=== PATIENT | male | born 1965 | race Caucasian/White ===

== ENCOUNTER 2017-03-27 15:03 | Inpatient (IN) | payer OTHER ==
[~2017-03-27] VITALS: Ht 182.9 cm; Wt 125.9 kg
[~2017-03-27 15:03] MED LIST: ANTIVERT25 MG PO; ASPIRIN325 MG PO; ATARAX,VISTARIL25 MG PO; ATIVAN0.5 MG PO; BACTRIM,SEPT1 TABLET PO; BUSPAR10 MG PO; CELEXA20 MG PO; CITALOPRAM HBR20 MG PO; COLACE100 MG PO; Chronulac,Cephulac,Enulose 20 gm/30 ml PO; DEPAKOTE ER500 MG PO; DEPAKOTE250 MG PO; DICYCLOMINE HCL10 MG PO; DILANTIN100 MG PO; DIVALPROEX SOD250 MG PO; DIVALPROEX SOD500 M1 PO; EFFEXOR XR150 MG PO; EFFEXOR XR37.5 MG PO; EFFEXOR XR75 MG PO; ENDOCET 5-3251 EACH PO; KRISTALOSE20 GM PO; LEVOTHYROXINE25 MCG PO; LORAZEPAM0.5 MG PO; NAPROSYN500 MG PO; PHENOBARBITAL32.4 MG PO; PHENOBARBITAL64.8 MG PO; PHENYTOIN SODI100 M1 PO; QUETIAPINE FUM400 MG PO; SEROQUEL300 MG PO; SEROQUEL400 MG PO; SERTRALINE HCL100 MG PO; SYNTHROID25 MCG PO; TESSALON200 MG PO; TRAZODONE HCL50 MG PO; TYLENOL REGULA325 MG PO; VENLAFAXINE HC150 M1 PO; VENLAFAXINE HCL75 M3 PO; VENLAFAXINE HCL75 MG PO; ZOFRAN ODT8 MG PO; ZOLOFT100 MG PO; ZOLOFT50 MG PO
[2017-03-27] MEDS ORDERED: ATIVAN1 MG PO (18:04)
[2017-03-27] MEDS ORDERED: QUETIAPINE FUMA50 MG PO (18:06)
[2017-03-27] MEDS ORDERED: MIRTAZAPINE45 MG PO (18:08)
[2017-03-27] MEDS ORDERED: LEVOTHYROXINE25 MCG PO (18:08)
[2017-03-27] MEDS ORDERED: LISINOPRIL10 MG PO (18:09)
[2017-03-27] MEDS ORDERED: ATORVASTATIN CA10 MG PO (18:13)
[2017-03-27] MEDS ORDERED: LO-DOSE ASPIRIN81 M2 PO (18:14)
[2017-03-27] MEDS ORDERED: RESTASIS MULTI5.5 ML BOTH EYES (18:15)
[2017-03-27] MEDS ORDERED: ADVIL,NUPRIN,M200 MG PO (18:18)
[2017-03-27 19:11] VITALS: BP 117/74
[2017-03-28 07:50] VITALS: BP 138/92
[2017-03-28 15:42] VITALS: BP 122/81
[2017-03-29 16:01] VITALS: BP 116/64
[2017-03-30 07:38] VITALS: BP 80/50
[2017-03-30 15:23] VITALS: BP 156/77
== END 2017-03-31 14:16 | disposition home or self-care (01) | DRG 885 ==
LOC: EME 15:03 → 1WEST 16:43 → EDOF 16:43 → ENRESERV 18:20 → 1WEST 18:30
DX: F33.2 Major depressive disorder, recurrent severe without psychotic features (principal); R45.851 Suicidal ideations; F60.9 Personality disorder, unspecified; F41.9 Anxiety disorder, unspecified; I12.9 Hypertensive chronic kidney disease with stage 1 through stage 4 chronic kidney disease, or unspecified chronic kidney disease; N18.9 Chronic kidney disease, unspecified; G40.909 Epilepsy, unspecified, not intractable, without status epilepticus; G89.29 Other chronic pain; M54.9 Dorsalgia, unspecified; G43.909 Migraine, unspecified, not intractable, without status migrainosus; E78.5 Hyperlipidemia, unspecified; E66.01 Morbid (severe) obesity due to excess calories; Z68.37 Body mass index [BMI] 37.0-37.9, adult; Z86.011 Personal history of benign neoplasm of the brain
CPT/HCPCS: 90839; 97150 GO; 97165 GO; 99281; 99285